=== PATIENT | female | born 1950 | race Caucasian/White ===

== ENCOUNTER 2022-03-20 08:30 | Inpatient (IN) ==
[2022-03-20] MEDS ORDERED: Acetaminophen IV 1,000 MG/100 ML BAG IVPB ONE (08:43)
[2022-03-20] MEDS ORDERED: CeFAZolin Syr 2,000MG/20 ML 2,000 MG/20 ML SYRINGE IVPB ONE (08:47)
[2022-03-20] MEDS ORDERED: *HR* Propofol 200 MG/20 ML VIAL IVP ONE (08:59)
[2022-03-20] MEDS ORDERED: *HR* FentaNYL (PF) 100 MCG/2 ML VIAL ONE ×2 (08:59→10:54)
[2022-03-20] MEDS ORDERED: *HR* Midazolam HCl 2 MG/2 ML VIAL ONE (08:59)
[2022-03-20] MEDS ORDERED: Ringers Solution, Lactated 1,000 ML IVC SCH (09:00)
[2022-03-20] MEDS ORDERED: Albuterol 2.5 MG/3 ML NEBULIZER IH ONE (09:06)
[2022-03-20] MEDS ORDERED: *HR* HYDROmorphone PF 0.5 MG/0.5 ML SYRINGE IVP PRN (09:11)
[2022-03-20] MEDS ORDERED: Ondansetron 4 MG/2 ML VIAL IVP PRN ×2 (09:11→14:55)
[2022-03-20] MEDS ORDERED: Albuterol 2.5 MG/3 ML NEBULIZER IH PRN (09:11)
[2022-03-20] MEDS ORDERED: Ondansetron 4 MG/2 ML VIAL ONE (10:41)
[2022-03-20] MEDS ORDERED: *HR* Rocuronium Bromide 50 MG/5 ML VIAL ONE (10:41)
[2022-03-20] MEDS ORDERED: Lidocaine -MPF 2% 2 ML VIAL ONE (10:41)
[2022-03-20] MEDS ORDERED: *HR* Labetalol 20 MG/4 ML SYRINGE IVP ONE (11:10)
[2022-03-20] MEDS ORDERED: Sugammadex Sodium 200 MG/2 ML VIAL IV ONE (11:34)
[2022-03-20] MEDS ORDERED: *HR* HYDROMORPHONE 2 MG/ML VIAL ONE (11:39)
[2022-03-20] MEDS ORDERED: Naloxone 0.4 MG/ML INJ IVP PRN (14:55)
[2022-03-20] MEDS ORDERED: ALPRAZolam 0.25 MG TABLET PO PRN (14:55)
[2022-03-20] MEDS ORDERED: *HR* OxyCODONE/APAP 7.5/325 TABLET PO PRN (14:55)
[2022-03-20] MEDS: *HR* Heparin 5,000 UNIT/ML VIAL SQ SCH ×2 (15:11→21:47)
[2022-03-20] MEDS: 0.9 % Sodium Chloride 1,000 ML IVC SCH (15:12)
[2022-03-20] MEDS: Ipratropium/Albuterol Neb 3 ML IH SCH ×3 (16:01→23:09)
[2022-03-20] MEDS: Sennosides/Docusate Sodium TABLET PO SCH (19:33)
[2022-03-20] MEDS: Famotidine 20 MG TABLET PO SCH (19:33)
[2022-03-20] MEDS: *HR* OxyCODONE/APAP 10/325 TABLET PO PRN (19:33)
[2022-03-21] MEDS: *HR* OxyCODONE/APAP 10/325 TABLET PO PRN ×4 (00:56→18:14)
[2022-03-21 01:48] LABS: Hematocrit 33.4 % (35.3-44.9); Hemoglobin 11.2 g/dL (11.5-15.4); Mean Corpuscular HGB Conc 33.5 g/dL (31.6-35.5); Mean Corpuscular Hemoglobin 31.7 pg (28.0-33.3); Mean Corpuscular Volume 94.6 fL (83.0-100.0); Platelet Count 285 K/mcL (140-400); Red Blood Count 3.53 M/mcL (3.82-4.97); Red Cell Distribution Width 13.3 % (11.5-14.5); White Blood Count 11.2 K/mcL (4.3-11.1)
[2022-03-21 01:56] LABS: BUN/Creatinine Ratio 21 (6-26); Blood Urea Nitrogen 18 mg/dL (8-23); Calcium 8.6 mg/dL (8.6-10.3); Carbon Dioxide 25 mEq/L (23-29); Chloride 104 mEq/L (98-107); Glucose 129 mg/dL (70-105); Magnesium 1.8 mg/dL (1.6-2.6); Osmolality,Calculated 284 (280-300); Potassium 3.7 mEq/L (3.5-5.1); Sodium 135 mEq/L (136-145); eGFR For African Americans > 60 (> 60); eGFR For Non-African Americans > 60 (> 60)
[2022-03-21] MEDS: 0.9 % Sodium Chloride 1,000 ML IVC SCH ×2 (04:04→18:14)
[2022-03-21] MEDS: Ipratropium/Albuterol Neb 3 ML IH SCH ×5 (04:12→20:45)
[2022-03-21] MEDS: *HR* Heparin 5,000 UNIT/ML VIAL SQ SCH ×3 (05:50→20:24)
[2022-03-21] MEDS: PARoxetine 10 MG TABLET PO SCH (09:03)
[2022-03-21] MEDS: Famotidine 20 MG TABLET PO SCH ×2 (09:04→20:24)
[2022-03-21] MEDS: amLODIPine 5 MG TABLET PO SCH (09:04)
[2022-03-21] MEDS: Sennosides/Docusate Sodium TABLET PO SCH ×2 (09:05→20:25)
[2022-03-21] MEDS: Losartan/HCTZ 50-12.5 TABLET PO SCH (09:54)
[2022-03-22] MEDS: Ipratropium/Albuterol Neb 3 ML IH SCH ×4 (00:22→10:50)
[2022-03-22] MEDS: *HR* Heparin 5,000 UNIT/ML VIAL SQ SCH (05:17)
[2022-03-22] MEDS: 0.9 % Sodium Chloride 1,000 ML IVC SCH (07:55)
[2022-03-22] MEDS: Losartan/HCTZ 50-12.5 TABLET PO SCH (08:06)
[2022-03-22] MEDS: *HR* OxyCODONE/APAP 10/325 TABLET PO PRN (08:06)
[2022-03-22] MEDS: Sennosides/Docusate Sodium TABLET PO SCH (08:06)
[2022-03-22] MEDS: PARoxetine 10 MG TABLET PO SCH (08:07)
[2022-03-22] MEDS: Famotidine 20 MG TABLET PO SCH (08:07)
[2022-03-22] MEDS: amLODIPine 5 MG TABLET PO SCH (08:07)
[2022-03-22 09:41] VITALS: TEMP 97.8
[2022-03-22 13:05] VITALS: BP 155/66; PULSE 82; O2SAT 96
== END 2022-03-22 14:23 | disposition home or self-care (01) | DRG 165 ==
LOC: SAMDAY 08:30 → 2NNU 14:52
PROVIDERS: ADMIT Thoracic Surgery (Cardiothoracic Vascular Surgery); ATTEND Thoracic Surgery (Cardiothoracic Vascular Surgery)